=== PATIENT | female | born 1965 | race Caucasian/White ===

== ENCOUNTER 2022-12-31 18:29 | Emergency (ER) | payer BC ==
[~2022-12-31] VITALS: Ht 160 cm; Wt 124.7 kg
[2022-12-31 18:33] VITALS: BP_SYST 187
--- NOTE | 2022-12-31 18:40 | NUR ---
Placed in room 05 . Placed on lunchroom monitor, blood pressure machine and pulse oximeter. To gown for exam. Side rails up.
--- NOTE | 2022-12-31 18:45 | NUR ---
PT RECEIVED EKG AT THIS TIME. PT BIB FAMILY FOR SOB. PT IS AAOX4. ON N/C AT 2LPM. NORMAL S1S2 NOTED. DISTAL PULSES NORMAL, SKIN WARM. DENIES PAIN.
--- NOTE | 2022-12-31 18:49 | NUR ---
DR. LAM AT BEDSIDE TO ASSESS PT.
--- NOTE | 2022-12-31 19:15 | NUR ---
# 20 gauge angiocath placed to LAC. Use of asceptic technique. Opsite placed over site. Blood return noted. Flushed with 10 cc of normal saline. No evidence of infiltration noted. Patient tolerated well.
--- NOTE | 2022-12-31 19:36 | NUR ---
ENDORSED ALL CARE TO JOSE CORRAL. ALL QUESTIONS AND CONCERNS ADDRESSED.
[2022-12-31 19:47] LABS: BASOPHILS % (AUTO) 0.5 % (0.0-2.0); EOSINOPHILS # (AUTO) 0.2 K/uL (0.0-0.4); EOSINOPHILS % (AUTO) 2.9 % (0.0-4.0); HEMATOCRIT 33.4 % (36-48); HEMOGLOBIN 10.8 g/dL (12.0-16.0); LYMPHOCYTES # (AUTO) 1.7 K/uL (1.0-5.5); LYMPHOCYTES % (AUTO) 31.5 % (20.5-51.5); MEAN CORPUSCULAR HEMOGLOBIN 29 pg (27-31); MEAN CORPUSCULAR HGB CONC 33 % (32-36); MEAN CORPUSCULAR VOLUME 89 fL (79.0-98.0); MONOCYTES # (AUTO) 0.6 K/uL (0.0-1.0); MONOCYTES % (AUTO) 10.1 % (1.7-9.3); NEUTROPHILS # (AUTO) 3.1 K/uL (1.8-7.7); PLATELET COUNT (AUTO) 195 K/uL (130-430); RED BLOOD CELL COUNT(AUTO) 3.75 MIL/uL (4.2-6.2); RED CELL DISTRIBUTION WIDTH 17.3 % (9.0-15.0); WHITE BLOOD COUNT (AUTO) 5.5 K/uL (4.8-10.8)
[2022-12-31 20:10] LABS: ANION GAP 5 (5-15); CALCIUM 8.8 mg/dL (8.4-11.0); CHLORIDE 101 mmol/L (98-107); CREATININE 1.06 mg/dL (0.55-1.30); GLUCOSE 97 mg/dL (70-99); UREA NITROGEN, BLOOD 29 mg/dL (8-21)
--- NOTE | 2022-12-31 20:15 | NUR ---
Pt denies c/o pain or discomfort. Pt to restroom, ambulatory with steady gait.
[2022-12-31 20:17] LABS: ALANINE AMINOTRANSFERASE 35 U/L (12-78); ALBUMIN 3.7 g/dL (3.4-4.8); ASPARTATE AMINOTRANSFERASE 54 U/L (10-37); TOTAL BILIRUBIN 0.6 mg/dL (0.0-1.0)
[2022-12-31 20:22] LABS: GFR AFRICAN AMERICAN 69 mL/min (>90)
[2022-12-31] MEDS ORDERED: iohexoL 350 mgI/mL, 100 ML INFUS..BTL IV ONE (20:58)
[2022-12-31] MEDS ORDERED: ALBMDI INH (23:00)
[2022-12-31] MEDS ORDERED: PSEU120T57 PO (23:00)
[2022-12-31 23:15] VITALS: BP_SYST 136
--- NOTE | 2022-12-31 23:15 | NUR ---
Patient given written and verbal discharge instructions and verbalizes understanding. ER MD discussed with patient the results and treatment provided. Patient in stable condition. ID arm band removed. IV catheter removed intact and dressing applied, no active bleeding. Rx of Albuterol and Sudafed given. Patient educated on pain management and to follow up with PMD. Pain Scale 0/10. Opportunity for questions provided and answered. Medication side effect fact sheet provided.
== END 2022-12-31 23:15 | disposition home or self-care (01) ==
LOC: SED 18:29
DX: R06.02 Shortness of breath (principal); R05.9 Cough, unspecified; R09.81 Nasal congestion; Z88.5 Allergy status to narcotic agent; Z88.8 Allergy status to other drugs, medicaments and biological substances; Z79.899 Other long term (current) drug therapy; Z20.822 Contact with and (suspected) exposure to COVID-19
CPT/HCPCS: 99285; 71275; 71045; 87426; 80053; 82550; 83880; 85025; 84484; 36415; 93005; 83605; 87804 ×2; 76376; Q9967